=== PATIENT | male | born 1950 ===

== ENCOUNTER 2021-02-16 09:36 | Outpatient (CLI) | payer OTHER | END 2021-02-16 09:42 | disposition home or self-care (01) | LOC: SONOGRAMA 09:36 | DX: M65.841 Other synovitis and tenosynovitis, right hand (principal); M79.641 Pain in right hand ==

== ENCOUNTER 2021-02-19 08:00 | Outpatient (CLI) | payer OTHER | END 2021-02-19 08:30 | disposition home or self-care (01) | LOC: PPH VACUNA 08:00 | PROVIDERS: ATTEND Emergency Medicine Pediatric Emergency Medicine | DX: Z23 Encounter for immunization (principal) ==